=== PATIENT | male | born 1990 | race Caucasian/White ===

== ENCOUNTER 2018-05-15 18:57 | Emergency (ER) | payer SELFPAY ==
[~2018-05-15] VITALS: Ht 190.5 cm; Wt 88.5 kg
[~2018-05-15 18:57] MED LIST: BENTYL10 MG PO; CLINDAMYCIN HC300 MG PO; LIDOCAINE VISC100 ML MM; MEDROL DOSEPAK4 MG PO; MOTRIN800 MG PO; PREDNISONE20 MG PO; Peridex 473 ML473 ML PO; ZANTAC150 MG PO; ZITHROMAX Z PA250 MG PO
[2018-05-15] MEDS ORDERED: LIDEX 0.05% CRE15 GM T (19:26)
[2018-05-15] MEDS ORDERED: CLINDAMYCIN HC300 MG PO (19:26)
== END 2018-05-15 19:29 | disposition home or self-care (01) ==
LOC: ED 18:57
DX: L03.312 Cellulitis of back [any part except buttock and flank] (principal); Z88.0 Allergy status to penicillin

== ENCOUNTER 2021-11-18 11:02 | Emergency (ER) | payer OTHER ==
[~2021-11-18] VITALS: Wt 86.2 kg
[~2021-11-18 11:02] MED LIST changes: +LIDEX 0.05% CRE15 GM T
== END 2021-11-18 14:04 | disposition home or self-care (01) ==
LOC: ED 11:02
DX: M25.461 Effusion, right knee (principal); Z88.1 Allergy status to other antibiotic agents